=== PATIENT | female | born 1950 | race American Indian/Alaskan Native ===

== ENCOUNTER 2019-11-25 15:56 | Emergency (ER) | payer MEDICARE ==
--- NOTE | 2019-11-25 16:19 | Event Note ---
ED Screening Note ED Screening Note: 69 y/o female presents to Ed c/o trip and fall hitting head on concrete and bleeding. no LOC. takes blood thinners. This initial assessment/diagnostic orders/clinical plan/treatment(s) is/are subject to change based on patients health status, clinical progression and re- assessment by fellow clinical providers in the ED. Further treatment and workup at subsequent clinical providers discretion. Patient/guardian urged not to elope from the ED as their condition may be serious if not clinically assessed and managed. Initial orders include:
--- NOTE | 2019-11-25 16:58 | Cat Scan Report ---
CT head/brain wo con INDICATION / CLINICAL INFORMATION: 69 years Female; MAIN: head trauma with hematoma tripped and hit back of head today. TECHNIQUE: Routine CT head without contrast. All CT scans at this location are performed using CT dos e reduction for ALARA by means of automated exposure control. COMPARISON: None. FINDINGS: BRAIN / INTRACRANIAL CONTENTS: There is extensive cerebral and pontine white matter disease which is nonspecific though most likely reflects microvascular angiopathy at. There are somewhat confluent are as of decreased attenuation involving the subcortical regions. The the ventricular system is within n ormal limits in size and configuration. The motion degrades the image quality. However, there is no clear CT evidence of acute intracranial h emorrhage or significant mass effect. ORBITS: There appears be a focal defect involving the inferior medial left orbital wall which may be developmental or related to previous trauma. No significant adjacent intraorbital inflammatory change s are identified. SINUSES / MASTOIDS: The visualized paranasal sinuses are clear. CRANIOCERVICAL JUNCTION: No significant abnormality. ADDITIONAL FINDINGS: None. IMPRESSION: 1. There is extensive microvascular angiopathy as described without CT evidence of acute intracranial hemorrhage. Signer Name: Elgin Jay MD Signed: 11/25/2019 4:53 PM Workstation Name: [id number]
--- NOTE | 2019-11-25 17:02 | Cat Scan Report ---
CT cervical spine wo con INDICATION / CLINICAL INFORMATION: 69 years Female; MAIN: tripped fell and hit back of head today . TECHNIQUE: Axial CT images of the cervical spine were obtained. Sagittal and coronal reformatted images were pr oduced. All CT scans at this location are performed using CT dose reduction for ALARA by means of aut omated exposure control. COMPARISON: None available. FINDINGS: POST-SURGICAL CHANGES: None. ALIGNMENT: There is no significant spondylolisthesis involving the cervical spine. VERTEBRAE: There are notable degenerative endplate changes at C6-7. However, there is no clear CT ev idence of acute fracture involving the cervical spine at. INTRAVERTEBRAL DISCS: The left uncovertebral and facet joint hypertrophy at C5-6. To result in milder to moderate left neural foraminal narrowing with encroachment on the left lateral recess at. There i s moderate to foraminal narrowing at C6-7, greater on the left. The spondylosis effaces the ventral s ubarachnoid space. There is mild left foraminal narrowing at C7-T1. PARASPINAL SOFT TISSUES: No prevertebral soft tissue fluid collections are identified. ADDITIONAL FINDINGS: There are few and left-sided cervical lymph nodes which are nonspecific though m ay be a reactive. IMPRESSION: 1. There is no clear CT evidence of acute fracture involving the cervical spine. 2. The changes at C5-6 and C6-7 as detailed above. Signer Name: Elgin Jay MD Signed: 11/25/2019 4:58 PM Workstation Name: [id number]
--- NOTE | 2019-11-25 20:06 | Emergency Department Report ---
ED Fall HPI - General Chief Complaint: Fall Stated Complaint: FALL BLEEDING FROM HEAD Time Seen by Provider: 11/25/19 16:08 Source: patient Mode of arrival: Ambulatory - History of Present Illness Initial Comments: Patient is a 69-year-old -[place] female with a history of hypertension and hyperlipidemia who presents to the ED with complaint of acute onset persistent headache and occipital scalp bleeding laceration after CT tripped and fell backwards hitting her head against a concrete ground about 2 hours ago with no loss of consciousness. Patient denies dizziness, syncope, seizures, nausea and vomiting, change in vision, neck pain, bilateral upper and lower extremity numbness and tingling or weakness, back pain, chest pain or shortness of breath. 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 denies: neck pain, numbness, weakness, chest paint, shortness of breath, abdominal pain, hematuria, lightheaded, vertigo, other - Related Data Previous Rx's Medication Instructions Recorded Last Taken Type Acetaminophen [Mapap] 500 mg PO Q6H PRN #30 tablet 11/25/19 Unknown Rx cephALEXin [Keflex] 500 mg PO Q8HR #30 cap 11/25/19 Unknown Rx Allergies Allergy/AdvReac Type Severity Reaction Status Date / Time atorvastatin [From Lipitor] Allergy Unknown Verified 11/25/19 16:05 lisinopril Allergy Unknown Verified 11/25/19 16:05 ED Review of Systems ROS: Stated complaint: FALL BLEEDING FROM HEAD Other details as noted in HPI Constitutional: denies: chills, fever Eyes: denies: eye pain, eye discharge, vision change ENT: denies: ear pain, throat pain Respiratory: denies: cough, shortness of breath, wheezing Cardiovascular: denies: chest pain, palpitations Endocrine: no symptoms reported Gastrointestinal: denies: abdominal pain, nausea, diarrhea Genitourinary: denies: urgency, dysuria, discharge Musculoskeletal: denies: back pain, joint swelling, arthralgia Skin: other (Occipital scalp bleeding laceration). denies: rash, lesions Neurological: headache. denies: weakness, paresthesias Psychiatric: denies: anxiety, depression Hematological/Lymphatic: denies: easy bleeding, easy bruising ED Past Medical Hx - Past Medical History Previous Medical History?: Yes Hx Hypertension: Yes - Surgical History Additional Surgical History: rotator cuff - Social History Smoking Status: Never Smoker - Medications Home Medications: Home Medications Medication Instructions Recorded Confirmed Last Taken Type Acetaminophen [Mapap] 500 mg PO Q6H PRN #30 tablet 11/25/19 Unknown Rx cephALEXin [Keflex] 500 mg PO Q8HR #30 cap 11/25/19 Unknown Rx ED Physical Exam - General Limitations: No Limitations General appearance: alert, in no apparent distress - Head Head exam: Present: other (Occipital scalp bleeding 2 cm laceration) - Eye Eye exam: Present: normal appearance, PERRL, EOMI Pupils: Present: normal accommodation - ENT ENT exam: Present: normal exam, normal orophraynx, mucous membranes moist, TM's normal bilaterally, normal external ear exam - Neck Neck exam: Present: normal inspection, full ROM. Absent: tenderness - Respiratory Respiratory exam: Present: normal lung sounds bilaterally. Absent: respiratory distress, wheezes, rales, rhonchi, chest wall tenderness, accessory muscle use, decreased breath sounds - Cardiovascular Cardiovascular Exam: Present: regular rate, normal rhythm, normal heart sounds. Absent: systolic murmur, diastolic murmur, rubs, gallop - GI/Abdominal GI/Abdominal exam: Present: soft, normal bowel sounds. Absent: tenderness, guarding, hyperactive bowel sounds - Extremities Exam Extremities exam: Present: normal inspection, full ROM, normal capillary refill - Back Exam Back exam: Present: normal inspection, full ROM. Absent: tenderness, CVA tenderness (R), muscle spasm, paraspinal tenderness - Neurological Exam Neurological exam: Present: alert, oriented X3, CN II-XII intact, normal gait, reflexes normal - Psychiatric Psychiatric exam: Present: normal affect, normal mood - Skin Skin exam: Present: warm, dry, intact, normal color, other (Bleeding occipital scalp 2 cm laceration). Absent: rash ED Course Vital Signs 11/25/19 16:08 Temperature 98.2 F Pulse Rate 97 H Respiratory 14 Rate Blood Pressure 144/84 [Right] O2 Sat by Pulse 99 Oximetry - Laceration /Wound Repair Posterior Occipital Wound Location: head (occipital scalp) Wound Length (cm): 2 Wound's Depth, Shape: superficial, irregular Wound Explored: contaminated Irrigated w/ Saline (ccs): 60 Betadine Prep?: Yes Wound Debrided: extensive Wound Repaired With: Steri-strips (Lukasz) Number of Sutures: 4 Layer Closure?: No Sterile Dressing Applied?: Yes Progress: The wound was cleaned thoroughly with copious amounts of normal saline and stapled. Patient tolerated the procedure well and the wound was afterwards appropriately dressed with 4 x 4 gauze and Kerlix. Patient was discharged home on oral antibiotics and pain medications and was advised to follow-up with her primary care physician in 5 to 7 days or return to the ED immediately if symptoms get worse. Patient was otherwise advised to return to the ED in 8 to 10 days for staple removal. ED Medical Decision Making - Radiology Data Radiology results: report reviewed, image reviewed Findings [facility] [address] [place] [address] Cat Scan Report Signed Patient: KOFI CHAO MR#: [id number] 528 : 1950 Acct:[id number] Age/Sex: 69 / F ADM Date: 11/25/19 Loc: ED Attending Dr: Ordering Physician: RANDEE GARDINER Date of Service: 11/25/19 Procedure(s): CT head/brain wo con Accession Number(s): [id number] cc: RANDEE GARDINER CT head/brain wo con INDICATION / CLINICAL INFORMATION: 69 years Female; MAIN: head trauma with hematoma tripped and hit back of head today. TECHNIQUE: Routine CT head without contrast. All CT scans at this location are performed using CT dose reduction for ALARA by means of automated exposure control. COMPARISON: None. FINDINGS: BRAIN / INTRACRANIAL CONTENTS: There is extensive cerebral and pontine white matter disease which is nonspecific though most likely reflects microvascular angiopathy at. There are somewhat confluent areas of decreased attenuation involving the subcortical regions. The the ventricular system is within normal limits in size and configuration. The motion degrades the image quality. However, there is no clear CT evidence of acute intracranial hemorrhage or significant mass effect. ORBITS: There appears be a focal defect involving the inferior medial left orbital wall which may be developmental or related to previous trauma. No significant adjacent intraorbital inflammatory changes are identified. SINUSES / MASTOIDS: The visualized paranasal sinuses are clear. CRANIOCERVICAL JUNCTION: No significant abnormality. ADDITIONAL FINDINGS: None. IMPRESSION: 1. There is extensive microvascular angiopathy as described without CT evidence of acute intracranial hemorrhage. Signer Name: Elgin Jay MD Signed: 11/25/2019 4:53 PM Workstation Name: [id number] Transcribed By: MR Dictated By: Elgin Jay MD Electronically Authenticated By: Elgin Jay MD Signed Date/Time: 11/25/191652 DD/ 49 TD/TT: Findings [facility] [address] [place] [address] Cat Scan Report Signed Patient: KOFI CHAO MR#: [id number] : 1950 Acct:[id number] Age/Sex: 69 / F ADM Date: 11/25/19 Loc: ED Attending Dr: Ordering Physician: RANDEE AGRDINER Date of Service: 11/25/19 Procedure(s): CT cervical spine wo con Accession Number(s): [id number] cc: RADNEE GARDINER CT cervical spine wo con INDICATION / CLINICAL INFORMATION: 69 years Female; MAIN: tripped fell and hit back of head today . TECHNIQUE: Axial CT images of the cervical spine were obtained. Sagittal and coronal reformatted images were produced. All CT scans at this location are performed using CT dose reduction for ALARA by means of automated exposure control. COMPARISON: None available. FINDINGS: POST-SURGICAL CHANGES: None. ALIGNMENT: There is no significant spondylolisthesis involving the cervical spine. VERTEBRAE: There are notable degenerative endplate changes at C6-7. However, there is no clear CT evidence of acute fracture involving the cervical spine at. INTRAVERTEBRAL DISCS: The left uncovertebral and facet joint hypertrophy at C5- 6. To result in milder to moderate left neural foraminal narrowing with encroachment on the left lateral recess at. There is moderate to foraminal narrowing at C6-7, greater on the left. The spondylosis effaces the ventral subarachnoid space. There is mild left foraminal narrowing at C7-T1. PARASPINAL SOFT TISSUES: No prevertebral soft tissue fluid collections are identified. ADDITIONAL FINDINGS: There are few and left-sided cervical lymph nodes which are nonspecific though may be a reactive. IMPRESSION: 1. There is no clear CT evidence of acute fracture involving the cervical spine. 2. The changes at C5-6 and C6-7 as detailed above. Signer Name: Elgin Jay MD Signed: 11/25/2019 4:58 PM Workstation Name: [id number] Transcribed By: MR Dictated By: Elgin Jay MD Electronically Authenticated By: Elgin Jay MD Signed Date/Time: 11/25/191657 DD/ 52 TD/TT: - Medical Decision Making This is a 69-year-old female who presented to the ED for evaluation after she tripped and fell down backwards hitting her head against a concrete ground about 2 hours ago with no loss of consciousness. In the ED, patient is alert and oriented x3 and is not in any distress, resting comfortably in the bed and carrying out conversations normally and is hemodynamically stable. Patient was treated for pain in the ED with Tylenol. Patient stated that she is up-to-date with her tetanus vaccination have been received the same [address] scan without contrast shows no acute intracranial abnormalities or hemorrhage. There is however finding of extensive microvascular angiopathy as described without CT evidence of acute intracranial hemorrhage. The C-spine CT scan without contrast shows no evidence of cervical spine fractures or subluxations. There is however no significant spondylolisthesis involving the cervical spine. There are notable degenerative endplate changes at C6-7. However, there is no clear CT evidence of acute fracture involving the cervical spine at. The left uncovertebral and facet joint hypertrophy at C5-6. To result in milder to moderate left neural foraminal narrowing with encroachment on the left lateral recess at. There is moderate to foraminal narrowing at C6-7, greater on the left. The spondylosis effaces the ventral subarachnoid space. There is mild left foraminal narrowing at C7-T1. The occipital scalp bleeding laceration was cleaned thoroughly and stapled per protocol. Patient tolerated the procedure well. On reevaluation, patient's pain is well controlled with medications. Patient was discharged home on medications and advised to follow-up with her primary care physician in 5 to 7 days for reevaluation or return to the ED immediately if her symptoms get worse especially if she develops intractable nausea and vomiting, severe headache, shortness of breath, syncope, loss of consciousness, seizures, dizziness or numbness or weakness of upper and lower extremities bilaterally. Patient was otherwise advised to return to the ED in 8 to 10 days for staple removal. - Differential Diagnosis Scalp contusion; Scalp laceration; Headache; Concussion Critical care attestation.: If time is entered above; I have spent that time in minutes in the direct care of this critically ill patient, excluding procedure time. ED Disposition Clinical Impression: Acute post-traumatic headache, not intractable Contusion of scalp Qualifiers: Encounter type: initial encounter Qualified Code(s): S00.03XA - Contusion of scalp, initial encounter Occipital scalp laceration Qualifiers: Encounter type: initial encounter Qualified Code(s): S01.01XA - Laceration without foreign body of scalp, initial encounter Disposition: TO HOME OR SELFCARE Is pt being admited?: No Does the pt Need Aspirin: No Condition: Stable Instructions: Laceration (ED), Concussion (ED), Acute Headache (ED), Scalp Contusion in Adults (ED) Additional Instructions: The head CT scan without contrast shows no acute intracranial abnormalities or hemorrhage. The C-spine CT scan without contrast shows no acute cervical spine fractures or subluxations. Therefore take medications as needed for pain, take the oral prophylactic antibiotics to prevent infection and follow-up with your primary care physician in 5 to 7 days for reevaluation. Return to the ED immediately if your symptoms get worse especially if you develop seizures, syncope, intractable nausea and vomiting, worsening headache, neck pain, bilateral upper and lower extremity weakness, change in vision or shortness of breath. Otherwise return to the ED or to your primary care physician or urgent care clinic in 8 to 10 days for lukasz removal. Prescriptions: cephALEXin [Keflex] 500 mg PO Q8HR #30 cap Acetaminophen [Mapap] 500 mg PO Q6H PRN #30 tablet PRN Reason: Pain , Severe (7-10) Referrals: [facility] [Outside] - 3-5 Days Time of Disposition: 20:10 Print Language: BENINESE
[2019-11-25] MEDS ORDERED: ACETAMINOPHEN 500 MG TAB PO ONE (20:13)
[2019-11-25] MEDS ORDERED: TETANUS,DIPH,PERTUSS(ACELL) VACCINE 0.5 ML SYRINGE IM ONE (20:13)
[2019-11-25 20:32] VITALS: BP 138/84
== END 2019-11-25 20:37 | disposition home or self-care (01) ==
LOC: ED 15:56
DX: S01.01XA Laceration without foreign body of scalp, initial encounter (principal); I10 Essential (primary) hypertension; G44.319 Acute post-traumatic headache, not intractable; Z79.899 Other long term (current) drug therapy; Z88.8 Allergy status to other drugs, medicaments and biological substances; W18.39XA Other fall on same level, initial encounter; Y93.89 Activity, other specified; Y92.488 Other paved roadways as the place of occurrence of the external cause; Y99.8 Other external cause status
CPT/HCPCS: 70450; 72125; 99283